=== PATIENT | female | born 1950 | race Hispanic/Latino ===

== ENCOUNTER 2018-08-13 10:57 | Outpatient (CLI) | payer MEDICARE, OTHER | END 2018-08-13 10:58 | disposition home or self-care (01) | LOC: C.PAT 10:57 | DX: I73.9 Peripheral vascular disease, unspecified (principal) ==

== ENCOUNTER 2018-08-19 10:18 | Day surgery (SDC) | payer MEDICARE, OTHER ==
[2018-08-13 11:09] VITALS: BMI 22.8
[2018-08-19] MEDS ORDERED: Lidocaine 1% 20 MG/2 ML PF AMP ONE (13:11)
[2018-08-19] MEDS ORDERED: Midazolam 2 MG/2 ML VIAL ONE ×2 (13:12)
[2018-08-19] MEDS ORDERED: Iohexol 350mg/ml 100 ML ONE (13:45)
[2018-08-19] MEDS ORDERED: Verapamil 2 ML ONE ×2 (13:49→13:51)
[2018-08-19] MEDS ORDERED: Nitroglycerin 50mg in D5W 50 MG/250 ML BOTTLE IV ONE (13:50)
--- NOTE | 2018-08-20 00:52 | CARDCATH ---
PROCEDURE DATE: 08/19/2018 INDICATIONS: Ms. 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 PROCEDURES PERFORMED: 1. Distal abdominal aortogram with bilateral iliac runoff. 2. Selective bilateral iliofemoral angiogram with runoff. 3. A 5-Vincentian left femoral arterial access. Manual pressure for hemostasis. TECHNIQUES OF PROCEDURE: After obtaining informed consent, the patient was brought to the cardiac cath suite in post-absorptive and non-sedative state. The patient was prepped and draped in the usual sterile fashion, 2% lidocaine was used for infiltration of anesthesia. Using modified Seldinger technique, a 5-Vincentian sheath was introduced into left femoral artery and left iliofemoral angiogram with runoff was performed and digital subtraction angiographic views of below the knee and the left foot profile was obtained. Subsequently, over a [place] Advantage wire, a Contra catheter was advanced into the abdominal aorta. Abdominal aortogram with bilateral iliac runoff was performed. Subsequently, the catheter was advanced across the aortoiliac bifurcation to the left common femoral artery. Digital subtraction angiographic views of the right SFA, right popliteal, right [id number], and right foot profile was obtained. Subsequently over [place] Advantage wire, 100 cm glide catheter was advanced up to the popliteal artery. Selective angiogram of the right infrapopliteal vessels were obtained using DSA. Severe slow flow was noted at this point. The patient was given intraarterial calcium channel blockers and nitrates and repeat angiogram showed good distal flow. ANGIOGRAPHIC FINDINGS: Bilateral common iliac and external iliac are patent. Bilateral SFAs are patent. Bilateral popliteal patent. Bilateral three-vessel runoff below the knee. FINDINGS: Severe endothelial dysfunction with slow flow phenomena noted. The patient's flow improved after giving intraarterial calcium channel blockers and nitrates. RECOMMENDATIONS: The patient is to be initiated on calcium channel kike therapy. The patient to undergo evaluation for venous insufficiency for possible slow flow phenomena. Gerson Astorga MD
[2018-08-21 14:33] VITALS: RESP 18; O2SAT 100
== END 2018-08-19 19:00 | disposition home or self-care (01) ==
LOC: C.CATHLAB 10:18
PROVIDERS: ATTEND Internal Medicine Interventional Cardiology
DX: I73.9 Peripheral vascular disease, unspecified (principal)
CPT/HCPCS: 36247; 75625; 75716; 75774; 76937; 94770; 99152; 99153; C1766; C1769; C1887; J1644; J2250; J3010; Q9967